=== PATIENT | female | born 1990 | race Caucasian/White ===

== ENCOUNTER → 2016-05-21 | Outpatient (CLI) | payer BC | LOC: RAD 09:01 | PROVIDERS: ATTEND Family Medicine | DX: Z36 Encounter for antenatal screening of mother (principal) | CPT/HCPCS: 76805 ==

== ENCOUNTER 2016-07-14 11:57 | Outpatient (CLI) | payer BC ==
[~2016-07-14] VITALS: Ht 160 cm; Wt 87.7 kg
[~2016-07-14 11:57] MED LIST: ALPR0.25 PO; APAP; CLIN-78 PO; CLN75100 PO; DIPH25CA79 PO; DXM4T PO; HYDR-3881 PO; IBUP-15 PO; NAPR500T3 PO; NF-ESOM40C PO; OXYC1TAB87 PO; OXYCODONE; PREN-98 PO
[2016-07-14 12:10] VITALS: BP 120/71
[2016-07-14] MEDS ORDERED: PREN-148 PO (12:22)
[2016-07-14] MEDS ORDERED: BUPR150T6 PO (12:39)
[2016-07-14] MEDS ORDERED: QUET100T29 PO (12:39)
[2016-07-14 13:10] VITALS: BP 127/70
--- NOTE | 2016-07-14 13:59 | NUR ---
1205 pt arrived in OB department via wheelchair. pt complains of nausea and painful muscle cramping with cassie Bailey contractions. Placed pt on monitor. See labor flow sheet. 1320 Pt discharged in good condition. Pt ambulated from OB dept with instructions to rest and increase water consumption.
== END 2016-07-14 13:40 | disposition home or self-care (01) ==
LOC: OBGOP 11:57 → OB 12:00 → OBGOP 13:40
PROVIDERS: ATTEND Family Medicine
DX: O26.893 Other specified pregnancy related conditions, third trimester (principal); Z3A.29 29 weeks gestation of pregnancy
CPT/HCPCS: 99202